=== PATIENT | female | born 1950 | race Caucasian/White ===

== ENCOUNTER 2024-07-25 07:19 | Day surgery (SDC) | payer MEDICARE ==
[~2024-07-25] VITALS: Ht 162.6 cm; Wt 130.6 kg
[~2024-07-25 07:19] MED LIST: LR 1,000 ML IV SCH
[2024-07-25] MEDS ORDERED: Succinylcholine PF 200 MG/10 ML SYRINGE IV ONE (08:21)
[2024-07-25] MEDS ORDERED: NS 0 ML IV ONE (08:21)
[2024-07-25] MEDS ORDERED: fentaNYL 50 MCG/ML 2 ML VIAL ONE (08:21)
[2024-07-25] MEDS ORDERED: Ondansetron 4 MG/2 ML VIAL ONE (08:21)
[2024-07-25] MEDS ORDERED: dexAMETHasone 10 MG/ML VIAL ONE (08:21)
[2024-07-25] MEDS ORDERED: Ketorolac 30 MG/ML VIAL ONE (08:21)
[2024-07-25] MEDS ORDERED: Lidocaine PF 2% (20 MG/ML) 5 ML VIAL ONE (08:21)
[2024-07-25] MEDS ORDERED: Rocuronium 50 MG/5 ML Multi-Dose VIAL ONE (08:21)
[2024-07-25] MEDS ORDERED: NORVASC 10MG10 MG PO (08:45)
[2024-07-25 08:52] LABS: MEAN CELL VOLUME 97 fl (80.0-100.0); MEAN CORPUSCULAR HEMOGLOBIN 31 pg (27-31); MEAN CORPUSCULAR HGB CONC 32 g/dl (33.0-37.0); MEAN PLATELET VOLUME 9.3 fl (7.4-10.4); PLATELET COUNT 229 K/mm3 (130-400); REDCELL DISTRIBUTION WIDTH-CV 14.8 % (11.5-14.5)
[2024-07-25] MEDS ORDERED: Indocyanine Green 12.5 MG in Water For Injection,Sterile 2.5 ML IV ONE (09:00)
[2024-07-25 09:05] LABS: HEMATOCRIT 34.8 % (37.0-47.0)
[2024-07-25] MEDS ORDERED: Ondansetron 4 MG/2 ML VIAL IV PRN (09:15)
[2024-07-25] MEDS ORDERED: hydrALAZINE 20 MG/ML 1 ML VIAL IV PRN (09:15)
[2024-07-25] MEDS ORDERED: fentaNYL 50 MCG/ML 1 ML SYRINGE/VIAL [PACU/SDC ONLY] IV PRN (09:15)
[2024-07-25] MEDS ORDERED: HYDROmorphone 1 MG/1 ML SYRINGE [PACU/SDC ONLY] IV PRN (09:15)
[2024-07-25] MEDS ORDERED: droPERidol 2.5 MG/ML 2 ML VIAL IV PRN (09:15)
[2024-07-25] MEDS ORDERED: ceFAZolin 1 G in Water For Injection,Sterile 10 ML IV ONE (09:30)
[2024-07-25 10:08] VITALS: BP 118/65; PULSE 70; TEMP 98.6
[2024-07-25 10:10] LABS: ALBUMIN 3.3 g/dL (3.4-4.8); BILIRUBIN,TOTAL 0.5 mg/dL (0.2-1.2); CALCIUM 9.5 mg/dL (8.4-10.2); CREATININE, serum 3.05 mg/dL (0.57-1.11); TOTAL PROTEIN 7.1 g/dl (6.2-8.1)
[2024-07-25] MEDS ORDERED: ZESTRIL40 MG PO (10:33)
[2024-07-25] MEDS ORDERED: ELIQUIS 5MG PO (10:34)
[2024-07-25] MEDS ORDERED: REQUIP 0.5MG0.5 MG PO (10:34)
[2024-07-25] MEDS ORDERED: TOPROL XL 50MG50 MG PO (10:34)
[2024-07-25] MEDS ORDERED: CELEBREX 200MG200 MG PO (10:35)
[2024-07-25] MEDS ORDERED: NEURONTIN100 MG/CAP PO (10:35)
[2024-07-25] MEDS ORDERED: ALDACTONE 25MG25 M1 PO (10:36)
[2024-07-25] MEDS ORDERED: LASIX 20MG TABL20 MG PO (10:36)
[2024-07-25] MEDS ORDERED: LIPITOR 10MG10 MG PO (10:36)
[2024-07-25] MEDS ORDERED: ASPIRIN 81M81 MG/TA2 PO ×2 (10:37→10:38)
--- NOTE | 2024-07-25 10:43 | NUR ---
0845- LAB RESULTS CAME BACK WITH A K+ OF 7.4. DR. FROST NOTIFIED AND RACHEL PARIS NOTIFIED. DR. FROST REQUESTED FOR A RE-DRAW. 0948- RE-DRAW CAME BACK WITH A K+ OF 8.0. DR. FROST IS IN COMMUNICATION WITH POT ROOM TAPPER AND HOSPITALIST. DR. FROST GAVE VERBAL ORDER TO HAVE PT ADMITTED TO THE ER. 1020- CALLED ER TO HAVE PT ADMITTED. NURSE GAVE ROOM #10. 1030- PT TRANSFERRED FROM [facility] TO ER AT THIS TIME AND HANDED OFF TO ER NURSE. PT A&O AT TIME OF TRANSFER.
[2024-07-25] MEDS ORDERED: LOPRESSOR 550 MG/TAB PO (12:04)
[2024-07-25] MEDS ORDERED: PRIL40 PO (12:06)
== END 2024-07-25 10:30 ==
LOC: SDCO 07:19
PROVIDERS: Surgery
DX: K80.10 Calculus of gallbladder with chronic cholecystitis without obstruction (principal); K52.9 Noninfective gastroenteritis and colitis, unspecified; Z53.09 Procedure and treatment not carried out because of other contraindication; I12.9 Hypertensive chronic kidney disease with stage 1 through stage 4 chronic kidney disease, or unspecified chronic kidney disease; N18.9 Chronic kidney disease, unspecified; Z79.899 Other long term (current) drug therapy
CPT/HCPCS: J0690; J1100; J1885; J2405; J2704; J3010; J7120

== ENCOUNTER 2024-07-25 10:27 | Inpatient (IN) | payer MEDICARE ==
[~2024-07-25] VITALS: Ht 10.2 cm; Wt 132.4 kg
[~2024-07-25 10:27] MED LIST changes: -LR 1,000 ML IV SCH; +NORVASC 10MG10 MG PO
[2024-07-25] MEDS ORDERED: ZESTRIL40 MG PO (10:33)
[2024-07-25] MEDS ORDERED: ELIQUIS 5MG PO (10:34)
[2024-07-25] MEDS ORDERED: REQUIP 0.5MG0.5 MG PO (10:34)
[2024-07-25] MEDS ORDERED: TOPROL XL 50MG50 MG PO (10:34)
[2024-07-25] MEDS ORDERED: CELEBREX 200MG200 MG PO (10:35)
[2024-07-25] MEDS ORDERED: NEURONTIN100 MG/CAP PO (10:35)
[2024-07-25] MEDS ORDERED: LASIX 20MG TABL20 MG PO (10:36)
[2024-07-25] MEDS ORDERED: LIPITOR 10MG10 MG PO (10:36)
[2024-07-25] MEDS ORDERED: ALDACTONE 25MG25 M1 PO (10:36)
[2024-07-25] MEDS ORDERED: ASPIRIN 81M81 MG/TA2 PO ×2 (10:37→10:38)
[2024-07-25 10:45] LABS: BASO # 0.1 K/mm3 (0.0-0.2); BASO % 1.4 % (0.0-2.0); EOS # 0.4 K/mm3 (0.0-0.7); EOS % 4.7 % (0.0-4.0); GRAN % 62.6 % (42.2-75.2); HEMOGLOBIN 11.6 g/dl (12.5-16.0); LYMPH # 1.8 K/mm3 (1.2-3.4); LYMPH % 22.4 % (20.0-51.0); MEAN CELL VOLUME 96 fl (80.0-100.0); MEAN CORPUSCULAR HEMOGLOBIN 31 pg (27-31); MEAN CORPUSCULAR HGB CONC 33 g/dl (33.0-37.0); MEAN PLATELET VOLUME 9.8 fl (7.4-10.4); MONO # 0.7 K/mm3 (0.1-0.6); MONO % 8.5 % (1.7-9.3); PLATELET COUNT 261 K/mm3 (130-400); RED BLOOD COUNT 3.72 M/mm3 (4.10-5.30); REDCELL DISTRIBUTION WIDTH-CV 14.7 % (11.5-14.5)
[2024-07-25 10:47] LABS: HEMATOCRIT 35.6 % (37.0-47.0)
[2024-07-25] MEDS ORDERED: Dextrose 50% Water 25 GM/50 ML SYRINGE IV ONE (11:00)
[2024-07-25] MEDS ORDERED: Sodium Polystyrene Sulf Susp 15 GM/60 ML BOTTLE PO ONE (11:00)
[2024-07-25] MEDS ORDERED: Insulin Regular Human (NovoLIN R/HumuLIN R) IV ONE (11:00)
[2024-07-25 11:04] LABS: ALBUMIN 3.6 g/dL (3.4-4.8); BILIRUBIN,TOTAL 0.5 mg/dL (0.2-1.2); CALCIUM 9.7 mg/dL (8.4-10.2); CREATININE, serum 3.04 mg/dL (0.57-1.11); TOTAL PROTEIN 7.7 g/dl (6.2-8.1)
[2024-07-25 11:08] LABS: POTASSIUM 7.2 mEq/L (3.5-4.5)
[2024-07-25] MEDS ORDERED: Sodium Zirconium Cyclosilicate for Oral Susp 10 GM PACKET PO ONE ×2 (11:15→18:30)
[2024-07-25] MEDS ORDERED: Ondansetron 4 MG/2 ML VIAL IV PRN (11:30)
[2024-07-25] MEDS ORDERED: Docusate Sodium 100 MG CAP PO PRN (11:30)
[2024-07-25] MEDS ORDERED: Acetaminophen 325 MG TAB PO PRN (11:30)
[2024-07-25] MEDS ORDERED: D5 1/2 NS 1,000 ML IV SCH (11:30)
[2024-07-25] MEDS ORDERED: Polyethylene Glycol 3350 17 GM PDS PO PRN (11:30)
[2024-07-25] MEDS ORDERED: Calcium Gluconate 1,000 MG (4.65 mEq)/10 ML VIAL IV ONE (11:43)
[2024-07-25] MEDS ORDERED: Sodium Bicarbonate/Water,Steri 1,150 ML IV SCH (12:00)
[2024-07-25] MEDS ORDERED: LOPRESSOR 550 MG/TAB PO (12:04)
[2024-07-25] MEDS ORDERED: PRIL40 PO (12:06)
--- NOTE | 2024-07-25 12:15 | NUR ---
PT ARRIVED BY STRETCHER FROM THE EMERGENCY DEPARTMENT. SHE WAS ABLE TO STAND AND PIVOT ONTO THE BED WITH NO ISSUES. SHE IS ON ROOM AIR. SHE IS VOIDING IN THE TOILET. SHE IS ALERT AND ORIENTED. SHE HAS ONE IV SITE WITH NOTHING INFUSING. SHE HAS 2 BELONGINGS BAGS WITH HER. HER IS IN THE WAITING AREA. SHE HAS NO COMPLAINTS AT THIS TIME.
[2024-07-25 13:00] VITALS: BP_SYST 134
[2024-07-25 13:22] LABS: CALCIUM 9.7 mg/dL (8.4-10.2); CREATININE, serum 2.93 mg/dL (0.57-1.11)
[2024-07-25 13:28] LABS: POTASSIUM 7.1 mEq/L (3.5-4.5)
[2024-07-25 16:00] VITALS: BP 121/71; PULSE 60; TEMP 97.8
--- NOTE | 2024-07-25 16:31 | NUR ---
ordnance equipment worker met with patient's , Rios P# [phone], while patient was in the restroom to discuss discharge planning. Patient and live in [place]. Carola (daughter) is listed as patient's second contact, P# [phone]. PCP is Dr. Ho, Pharmacy is [facility]. Rios reported they have some expensive medications but have been able to afford it. Insurance is Medicare A and B and [employer]. Rios reported they have not completed an advance directive yet but are interested in this. DME is walker and has a wheelchair for longer outings. Rios reports patient has been independent with ADLS and normally could drive herself but has been light headed lately so he has been driving for all appointments. Rios reports no concerns about patient returning home. Rios reports they live in a 2 story home with a bed downstairs and they renovated the bathroom downstairs to have a walk in shower. Rios expressed patient can use her walker to get around the house and they have stools for when she needs to sit for tasks around the house. Patient does not use any home health services at this time. JERRICA met with patient and explained she wanted to discuss advance directives as Don reported they were interested in information on these. SW reviewed living will declaration information. Patient decided she would like to complete the living will and DPOA-HC. SW assisted patient with these forms. Patient chose to appoint Rios, then Carola, then Henrik. JERRICA and RN witnessed the signatures for both the living will and DPOA-HC. JERRICA made copies, placed copy on chart and provided original and several copies to patient. JERRICA explained PT and OT will evaluate for any further recommendations. No further questions or concerns at this time.
[2024-07-25 16:41] LABS: CALCIUM 9.4 mg/dL (8.4-10.2); CREATININE, serum 2.67 mg/dL (0.57-1.11)
[2024-07-25 17:07] LABS: POTASSIUM 6.7 mEq/L (3.5-4.5)
[2024-07-25 18:43] LABS: COLLECTION METHOD CLEAN CATCH
[2024-07-25 18:49] LABS: PH 5.5 (5.0-8.5); URINE APPEARANCE CLEAR (CLEAR/HAZY); URINE BLOOD NEGATIVE (NEGATIVE); URINE COLOR YELLOW (YELLOW); URINE GLUCOSE NEGATIVE (NEGATIVE); URINE KETONE NEGATIVE (NEGATIVE); URINE NITRATE NEGATIVE (NEGATIVE); URINE PROTEIN(semi-quant) NEGATIVE (NEGATIVE); URINE UROBILINOGEN 0.2 E.U/dL (0.2-1.0)
--- NOTE | 2024-07-25 19:10 | NUR ---
PT IN BED AND DENIES NEEDS. SODIUM BICARB RUNNING AT 150 MLS/HR. BED IN LOWEST POSITION, CALL LIGHT IN REACH, BED ALARM ON
[2024-07-25 20:10] VITALS: BP 114/57; PULSE 62; TEMP 98.1
--- NOTE | 2024-07-25 20:10 | NUR ---
PT LAYING IN BED UPON ENTERING. PT DENIES PAIN. RIGHT UPPER ARM PICC CDI, RED AND PURPLE PORTS FLUSH WITH BLOOD RETURN. SODIUM BICARB RUNNING PER ORDER IN PICC. PT AMBULATED TO BATHROOM WITH STANDBY, GAIT STEADY. PT REPORTS COMPLAINS OF SACRUM PAIN AND REPORTS CONCERN OF HEMORRRHOIDS. NO BLOOD NOTED NEAR RECTUM AND PT DENIES SEEING BLOOD WHEN WIPING. SMALL VERTICAL SKIN TEAR NOTED TO TOP OF GLUTEAL CLEFT, NO BLOOD NOTED. PT ENCOURAGED TO FREQUENTLY REPOSITION AND DENIES ASSISTANCE. PT DENIES NEEDS. BED IN LOWEST POSITION, CALL LIGHT IN REACH, BED ALARM ON
[2024-07-25 20:39] LABS: CALCIUM 9.3 mg/dL (8.4-10.2); CREATININE, serum 2.68 mg/dL (0.57-1.11)
[2024-07-25 20:43] LABS: POTASSIUM 5.9 mEq/L (3.5-4.5)
[2024-07-26] VITALS (7 sets, daily range): BP systolic 112–145; BP diastolic 50–83; PULSE 68–84; TEMP 97.6–98.5; O2SAT 94
--- NOTE | 2024-07-26 01:17 | NUR ---
SODIUM BICARB STOPPED AND RESPIRATORY NOTIFIED OF ABG ORDERS.
[2024-07-26 01:30] LABS: ARTERIAL BLD GAS O2 SATURATION 96.7 % (92-100); ARTERIAL BLD GAS TCO2 CT 22.9; ARTERIAL BLOOD GAS BASE EXCESS -1.6 (-2-2); ARTERIAL BLOOD GAS HCO3 21.9 meq/L (22-26); ARTERIAL BLOOD GAS PCO2 32.7 mmHg (35-45); ARTERIAL BLOOD GAS PO2 83.9 mmHg (80-100); ARTERIAL BLOOD GAS pH 7.44 (7.35-7.45)
--- NOTE | 2024-07-26 01:54 | NUR ---
SHOBHA GEE, CALLED THIS NURSE FOR LAB TO REDRAW BMP. LAB NOTIFIED
[2024-07-26 02:26] LABS: CREATININE, serum 2.47 mg/dL (0.57-1.11)
[2024-07-26 02:28] LABS: POTASSIUM 6.1 mEq/L (3.5-4.5)
--- NOTE | 2024-07-26 04:18 | NUR ---
PT REPORTS FEELING INTERMITTENT JITTERS. BG 80, PT GIVEN JUICE AND TRENT CRACKERS. PT DENIES OTHER NEEDS AT THIS TIME. BED IN LOWEST POSITION, CALL LIGHT IN REACH, BED ALARM ON
[2024-07-26 05:35] LABS: BASO # 0.1 K/mm3 (0.0-0.2); BASO % 0.9 % (0.0-2.0); EOS # 0.4 K/mm3 (0.0-0.7); EOS % 6.6 % (0.0-4.0); GRAN # 3.5 K/mm3 (1.4-6.5); GRAN % 62.3 % (42.2-75.2); LYMPH # 1.2 K/mm3 (1.2-3.4); LYMPH % 20.6 % (20.0-51.0); MEAN CELL VOLUME 93 fl (80.0-100.0); MEAN CORPUSCULAR HGB CONC 32 g/dl (33.0-37.0); MEAN PLATELET VOLUME 9.5 fl (7.4-10.4); MONO # 0.5 K/mm3 (0.1-0.6); MONO % 9.4 % (1.7-9.3); PLATELET COUNT 184 K/mm3 (130-400); RED BLOOD COUNT 2.78 M/mm3 (4.10-5.30); REDCELL DISTRIBUTION WIDTH-CV 14.6 % (11.5-14.5)
[2024-07-26 05:57] LABS: CALCIUM 7.9 mg/dL (8.4-10.2); CREATININE, serum 2.09 mg/dL (0.57-1.11)
[2024-07-26 06:11] LABS: HEMATOCRIT 25.9 % (37.0-47.0); MEAN CORPUSCULAR HEMOGLOBIN 30 pg (27-31)
[2024-07-26 06:12] LABS: HEMOGLOBIN 8.4 g/dl (12.5-16.0)
--- NOTE | 2024-07-26 07:15 | NUR ---
Patient laying in bed, blood pressures stable throughout the night. Potassium this morning is 5.0. Overnight nurse reported patient felt jittery overnight, blood sugar slightly low, gave juice and gramham crackers. Will continue to monitor for changes throughout today.
[2024-07-26 08:15] LABS: CALCIUM 9.3 mg/dL (8.4-10.2); CREATININE, serum 2.34 mg/dL (0.57-1.11)
[2024-07-26 08:27] LABS: POTASSIUM 5.8 mEq/L (3.5-4.5)
[2024-07-26 12:29] LABS: CALCIUM 9.2 mg/dL (8.4-10.2); CREATININE, serum 2.34 mg/dL (0.57-1.11); POTASSIUM 5.7 mEq/L (3.5-4.5)
--- NOTE | 2024-07-26 13:05 | NUR ---
D: Medical Clinic Manager stopped by room on rounds. A: Pt was resting and content with in the room. Great conversation and pt is feeling better today. Hopeful to get out of ICU soon. Both appreciated the visit. P: Medical Clinic Manager informed pt that if she needed anything from the cumulative effects analyst area to let her nurse know. Medical Clinic Manager will follow up as needed.
[2024-07-26] MEDS ORDERED: Gabapentin 100 MG CAP PO SCH (14:00)
--- NOTE | 2024-07-26 16:29 | NUR ---
odd bundle worker attended the mulitdisciplinary meeting to discuss discharge plan. Patient has made improvement with her potassium and may be able to return home tomorrow. Everyone is in agreement with this plan. Discharge plan: Home
[2024-07-26 18:39] LABS: CALCIUM 9.2 mg/dL (8.4-10.2); CREATININE, serum 2.14 mg/dL (0.57-1.11); POTASSIUM 5.4 mEq/L (3.5-4.5)
[2024-07-26] MEDS ORDERED: rOPINIRole 0.5 MG TAB PO SCH ×2 (21:00)
[2024-07-26] MEDS ORDERED: Apixaban 5 MG TABLET PO SCH (21:00)
--- NOTE | 2024-07-26 21:30 | NUR ---
PT RESTING IN CHAIR UPON ENTERING. PT DENIES PAIN. PICC TO RIGHT UPPER ARM, SODIUM BICARB RUNNING PER ORDER. PT DENIES NEEDS. CALL LIGHT IN REACH.
[2024-07-27] VITALS (8 sets, daily range): BP systolic 113–136; BP diastolic 55–68; PULSE 60–81; TEMP 97.5–98.5; O2SAT 90–96
--- NOTE | 2024-07-27 00:30 | NUR ---
PT RESTING IN CHAIR UPON ENTERING. PT REPORTS FEELING "JITTERY" AND "FLIGHTY" WITH ONSET IN THE LAST 10 MINUTES, FINE TREMORS NOTED. PT DENIES PAIN OR SHORTNESS OF BREATH. BG 97 AND VITALS WNL. HOSPITALIST UPDATED. PT AMBULATED TO BED WITH STANDBY ASSIST AND WALKER. PT DENIES FURTHER NEEDS AT THIS TIME. BED IN LOWEST POSITION, CALL LIGHT IN REACH, BED ALARM ON
--- NOTE | 2024-07-27 04:02 | NUR ---
O2 SATS DROPPING TO 80-85% WHEN SLEEPING. PT PLACED ON 1L NASAL CANNULA.
[2024-07-27 06:51] LABS: BASO # 0.1 K/mm3 (0.0-0.2); EOS # 0.5 K/mm3 (0.0-0.7); EOS % 8.1 % (0.0-4.0); GRAN # 3.4 K/mm3 (1.4-6.5); GRAN % 57.6 % (42.2-75.2); LYMPH # 1.4 K/mm3 (1.2-3.4); LYMPH % 23.1 % (20.0-51.0); MEAN CELL VOLUME 94 fl (80.0-100.0); MEAN CORPUSCULAR HGB CONC 33 g/dl (33.0-37.0); MEAN PLATELET VOLUME 9.1 fl (7.4-10.4); MONO # 0.6 K/mm3 (0.1-0.6); PLATELET COUNT 184 K/mm3 (130-400); RED BLOOD COUNT 2.98 M/mm3 (4.10-5.30); REDCELL DISTRIBUTION WIDTH-CV 14.6 % (11.5-14.5)
[2024-07-27 06:52] LABS: HEMATOCRIT 27.9 % (37.0-47.0); HEMOGLOBIN 9.2 g/dl (12.5-16.0); MEAN CORPUSCULAR HEMOGLOBIN 31 pg (27-31)
[2024-07-27 07:06] LABS: CALCIUM 8.8 mg/dL (8.4-10.2); CREATININE, serum 2.02 mg/dL (0.57-1.11); POTASSIUM 5.2 mEq/L (3.5-4.5)
--- NOTE | 2024-07-27 08:10 | NUR ---
Patient is laying in bed, snoring with 2 liters of oxygen. VSS, afebrile. Reports of chest "fluttering" overnight with a jittery feeling. Was able to get to sleep and feeling subsided. No further complaints at this time.
[2024-07-27] MEDS ORDERED: Atorvastatin 10 MG TAB PO SCH (09:00)
[2024-07-28] VITALS (7 sets, daily range): BP systolic 107–124; BP diastolic 60–87; PULSE 72–89; TEMP 97.8–98.6; O2SAT 97
--- NOTE | 2024-07-28 02:43 | NUR ---
PT HAS BEEN SLEEPING WELL THIS SHIFT. VSS.
[2024-07-28 06:34] LABS: BASO # 0.1 K/mm3 (0.0-0.2); EOS # 0.5 K/mm3 (0.0-0.7); EOS % 7.6 % (0.0-4.0); GRAN # 4.2 K/mm3 (1.4-6.5); GRAN % 60.9 % (42.2-75.2); LYMPH # 1.4 K/mm3 (1.2-3.4); LYMPH % 20.1 % (20.0-51.0); MEAN CELL VOLUME 96 fl (80.0-100.0); MEAN CORPUSCULAR HGB CONC 32 g/dl (33.0-37.0); MEAN PLATELET VOLUME 9.5 fl (7.4-10.4); MONO # 0.7 K/mm3 (0.1-0.6); MONO % 10.1 % (1.7-9.3); PLATELET COUNT 197 K/mm3 (130-400); RED BLOOD COUNT 3.18 M/mm3 (4.10-5.30); REDCELL DISTRIBUTION WIDTH-CV 14.5 % (11.5-14.5)
[2024-07-28 06:37] LABS: HEMATOCRIT 30.4 % (37.0-47.0); HEMOGLOBIN 9.6 g/dl (12.5-16.0); MEAN CORPUSCULAR HEMOGLOBIN 30 pg (27-31)
[2024-07-28 06:41] LABS: CALCIUM 9.2 mg/dL (8.4-10.2); CREATININE, serum 2.09 mg/dL (0.57-1.11); POTASSIUM 5.3 mEq/L (3.5-4.5)
--- NOTE | 2024-07-28 07:00 | NUR ---
Report received from JUAREZ Multani; patient currently resting in bed with no meds or fluids running through her peripheral INT. Patient is on oxygen at 2L via NC; no other lines or tubes are in place at this time. Patient's vital signs are within normal limits this morning.
[2024-07-28] MEDS ORDERED: Sodium Zirconium Cyclosilicate for Oral Susp 10 GM PACKET PO ONE ×2 (10:30→13:30)
[2024-07-28] MEDS ORDERED: Sodium Polystyrene Sulf Susp 15 GM/60 ML BOTTLE PO SCH (14:00)
--- NOTE | 2024-07-28 19:23 | NUR ---
PT UP IN CHAIR. NO COMPLAINTS AT THIS TIME.
[2024-07-29] VITALS: BP 112/60; PULSE 72; TEMP 98.4
--- NOTE | 2024-07-29 00:45 | NUR ---
DESATURATING INTO THE 60'S ON 2LNC. O2 INCREASED TO 3L AND HOB ELEVATED. CONTINUE PLAN OF CARE.
[2024-07-29 04:00] VITALS: BP 114/59; PULSE 66; TEMP 98.5
[2024-07-29 05:49] LABS: CREATININE, serum 1.83 mg/dL (0.57-1.11); MAGNESIUM 1.6 mg/dL (1.6-2.6); POTASSIUM 4.5 mEq/L (3.5-4.5)
--- NOTE | 2024-07-29 06:30 | NUR ---
PT VOIDED X3 OVERNIGHT. POTASSIUM 4.5 THIS AM. STABLE ON ROUNDS. RESPIRATIONS EVEN AND UNLABORED. NO C/O PAIN, CHEST PAIN, SHORTNESS OF BREATH. PT VERBALIZED DESIRE TO GO HOME. NO SIGN OF DISTRESS AT THIS TIME. CONTINUE PLAN OF CARE.
--- NOTE | 2024-07-29 07:45 | NUR ---
Patient awake and resting in bed; denies any needs or concerns at this time. States that she feels very good and is hopefull that she can go home today. VS stable. Call light left within reach.
--- NOTE | 2024-07-29 08:52 | NUR ---
Late entry: On 07/28/24, professor of social work attended interdisciplinary clinical rounding with Dr. Guo. Patient may be able to return home tomorrow.
--- NOTE | 2024-07-29 09:10 | NUR ---
electrical linesworker attended interdisciplinary clinical rounding with Dr. Guo. Patient is medically ready for discharge home today. Patient would need a sleep study or nocturnal excerise oximetry completed which patient reported she will schedule. SW met with patient and reviewed the important message from Medicare. Patient understood and had no questions regarding the form. Patient signed form. Patient asked about what diet she should be on and if there were recommendations on what to eat. SW explained she would speak with the nurse and she would be able to update her on the recommendations. SW made a copy of the IM, placed original in chart and provided copy to nurse to provide patient as patient as she is currently using the restroom. Discharge plan: Home
--- NOTE | 2024-07-29 11:10 | NUR ---
Discharge paperwork reviewed with patient and family. All questions and concerns addressed at this time. PICC line was removed from right arm without difficulty or complications. Patient remained in the supine position for 30 mintues post removal. Patient was escorted out of the facility and left with . Alert and oriented and in no distress upon discharge.
== END 2024-07-29 11:40 | disposition home or self-care (01) | DRG 683 ==
LOC: COL.ER 10:27 → ICU 11:33
PROVIDERS: Internal Medicine; Physician Assistant; ADMIT Internal Medicine
PROC: 02HV33Z Insertion of Infusion Device into Superior Vena Cava, Percutaneous Approach (ICD-10-PCS; principal; 2024-07-25)
DX: N17.9 Acute kidney failure, unspecified (principal); E87.20 Acidosis, unspecified; Z68.42 Body mass index [BMI] 45.0-49.9, adult; E87.5 Hyperkalemia; I10 Essential (primary) hypertension; K21.9 Gastro-esophageal reflux disease without esophagitis; E78.5 Hyperlipidemia, unspecified; I48.91 Unspecified atrial fibrillation; D64.9 Anemia, unspecified; K80.20 Calculus of gallbladder without cholecystitis without obstruction; R09.02 Hypoxemia; E66.01 Morbid (severe) obesity due to excess calories
CPT/HCPCS: A9270; C1751; G0463; J0612; J1815; Q3014